=== PATIENT | male | born 1965 | race Caucasian/White ===

== ENCOUNTER 2018-12-22 06:57 | Day surgery (SDC) | payer OTHER ==
[~2018-12-22] VITALS: Ht 177.8 cm; Wt 91.6 kg
[~2018-12-22 06:57] MED LIST: NS 1,000 ML IV ONE; OMEP20CA3 PO
[2018-12-22] MEDS ORDERED: PROPOFOL 200 MG/20 ML VIAL As Ordered ONE ×2 (08:05→08:07)
[2018-12-22] MEDS ORDERED: LIDOCAINE 2% INJ 100 MG/5 ML SDV (FOR ANES.) As Ordered ONE (08:05)
--- NOTE | 2018-12-22 08:24 | ROOR ---
Patient Name: Skinny Tavarez Procedure Date: 12/22/2018 7:56 AM Date of : 1965 Age: 53 Room: [facility] Gender: Male Note Status: Finalized Procedure: Upper GI endoscopy Indications: Boone's low grade dysplasia Providers: Mitch BROWNING MD Referring MD: NATTY LUZ MD Requesting Provider: Medicines: Monitored Anesthesia Care Complications: No immediate complications. Procedure: Pre-Anesthesia Assessment: - The heart rate, respiratory rate, oxygen saturations, blood pressure, adequacy of pulmonary ventilation, and response to care were monitored throughout the procedure. The Endoscope was introduced through the mouth, and advanced to the duodenal bulb. The upper GI endoscopy was performed with difficulty due to presence of food. Successful completion of the procedure was aided by lavage. The patient tolerated the procedure well. Findings: The esophagus and gastroesophageal junction were examined with white light and narrow band imaging (NBI). There were esophageal mucosal changes consistent with short-segment Boone's esophagus. These changes involved the mucosa along an irregular Z-line (39 cm from the incisors). Circumferential salmon-colored mucosa was present from 38 to 39 cm. The maximum longitudinal extent of these esophageal mucosal changes was 1 cm in length. Mucosa was biopsied with a cold forceps for histology randomly from 38 to 39 cm from the incisors. One specimen bottle was sent to pathology. A medium amount of food (residue) was found in the entire examined stomach. Removal of food was accomplished. No gross lesions were noted in the entire examined stomach. Food (residue) was found in the duodenal bulb. Removal of food was accomplished. No gross lesions were noted in the duodenal bulb. Impression: - Esophageal mucosal changes consistent with short-segment Boone's esophagus. Biopsied. - A medium amount of food (residue) in the stomach and duodenum. Removal was partially successful. - Visualisation of stomach and duodenum is suboptimal/poor, but no gross lesions were seen. (- Retained food in stomach after 8 hour fast is consistent with Gastroparesis) Recommendation: - Await pathology results. - Use Prilosec (omeprazole) 20 mg PO BID for the rest of the patient's life. - Gastroparesis diet: - Eat smaller, more frequent meals throughout the day. - Low fat diet. - Liquid/soft foods are tolerated better than solid foods. - Low fiber/well cooked vegetables are tolerated better than high fiber/fibrous foods/raw vegetables. - Avoid medications that inhibit gastric/intestinal motility such as narcotic medications. Mitch Browning MD Mitch BROWNING MD 12/22/2018 8:24:11 AM This report has been signed electronically. Number of Addenda: 0 Note Initiated On: 12/22/2018 7:56 AM Estimated Blood Loss: Estimated blood loss: none.
[2018-12-22 08:40] VITALS: BP 121/76
== END 2018-12-22 08:51 | disposition home or self-care (01) ==
LOC: M OPP 06:57
PROVIDERS: ATTEND Internal Medicine Gastroenterology
DX: T18.2XXA Foreign body in stomach, initial encounter (principal); T18.3XXA Foreign body in small intestine, initial encounter; K22.70 Barrett's esophagus without dysplasia; Y92.89 Other specified places as the place of occurrence of the external cause; Y93.89 Activity, other specified; Y99.8 Other external cause status

== ENCOUNTER 2020-01-26 12:43 | Observation (INO) | payer OTHER ==
[~2020-01-26] VITALS: Ht 177.8 cm; Wt 94.3 kg
[~2020-01-26 12:43] MED LIST changes: -NS 1,000 ML IV ONE; +OMEP1CAP73 PO; -OMEP20CA3 PO
[2020-01-26] MEDS ORDERED: ONDANSETRON 4MG/2ML VIAL (J2405) As Ordered ONE (13:22)
--- NOTE | 2020-01-26 13:26 | REP ---
Head CT without contrast: History: Headache. Comparison study: No comparison study. CT findings: Bone window settings demonstrate an intact bony calvarium. There is no evidence of skull fracture or incidental bony calvarial lesion. The visualized paranasal sinuses appear clear. No intraorbital abnormality is seen. On soft tissue window setting images; the lateral, third, and fourth ventricles are normal in size and position. Rodriguez-white differentiation pattern is normal above and below the tentorium. There are is no evidence of intracranial hemorrhage. No mass, edema, infarction, or midline shift is seen. No extra-axial fluid collection is appreciated. Impression: Negative noncontrast head CT. Electronically Signed by Miquel Mejia MD 01/26/2020 01:18 P
[2020-01-26] MEDS ORDERED: ONDANSETRON 4MG/2ML VIAL (J2405) IV PRN (13:30)
[2020-01-26 13:53] LABS: BASO % 0.4 % (0.0-1.0); EOS % 0.3 % (0.0-3.0); HEMOGLOBIN 14.8 g/dl (13.5-17.5); LYMPH # 1.9 10^3/uL (1.5-5.0); LYMPH % 27.6 % (24.0-44.0); MEAN CORPUSCULAR HEMOGLOBIN 31.4 pg (27.0-33.0); MEAN CORPUSCULAR HGB CONC 36.1 g/dl (32.0-36.5); MONO # 0.6 10^3/uL (0.0-0.8); MONO % 8.6 % (0.0-5.0); NEUTROPHILS # 4.2 10^3/uL (1.5-8.5); NEUTROPHILS % 62.8 % (36.0-66.0); PLATELET COUNT, AUTOMATED 203 10^3/uL (150-450); RED BLOOD COUNT 4.71 10^6/uL (4.30-6.10); WHITE BLOOD COUNT 6.7 10^3/uL (4.0-10.0)
[2020-01-26 14:00] LABS: PARTIAL THROMBOPLASTIN TIME 24.6 SECONDS (25.0-38.4); PROTHROMBIN TIME 12.9 SECONDS (11.8-14.0)
[2020-01-26] MEDS ORDERED: ONDANSETRON 4MG/2ML VIAL (J2405) IV ONE (14:00)
[2020-01-26 14:23] LABS: ALBUMIN 4.5 GM/DL (3.2-5.2); ALT/SGPT 59 U/L (12-78); BILIRUBIN,DIRECT 0.1 MG/DL (0.0-0.2); BILIRUBIN,TOTAL 0.7 MG/DL (0.2-1.0); BLOOD UREA NITROGEN 16 MG/DL (7-18); CALCIUM LEVEL 9.4 MG/DL (8.5-10.1); CARBON DIOXIDE LEVEL 20 MEQ/L (21-32); CHLORIDE LEVEL 106 MEQ/L (98-107); CREATININE FOR GFR 1.16 MG/DL (0.70-1.30); FREE T4 1.37 NG/DL (0.76-1.46); GLOMERULAR FILTRATION RATE > 60.0 (>56); GLUCOSE, FASTING 124 MG/DL (70-100); POTASSIUM SERUM 3.3 MEQ/L (3.5-5.1); SODIUM LEVEL 139 MEQ/L (136-145); TOTAL PROTEIN 7.5 GM/DL (6.4-8.2)
[2020-01-26] MEDS ORDERED: PROMETHAZINE INJ 25 MG/ML VIAL (J2550) IV ONE (14:30)
[2020-01-26] MEDS: HYDROMORPHONE HCL 0.5 MG/ 0.5 ML SYRINGE (J1170 PER 1) IV PRN ×2 (14:38→16:12)
[2020-01-26] MEDS ORDERED: ISOVUE-370 76% 100ML VIAL (Q9967) As Ordered ONE (18:00)
--- NOTE | 2020-01-26 19:00 | REPVR ---
PROCEDURE INFORMATION: Exam: CT Angiography Head With Contrast Exam date and time: 01/26/2020 6:29 PM Age: 54 years old Clinical indication: Pain; Headache TECHNIQUE: Imaging protocol: Computed tomography angiography of the head with intravenous contrast. 3D rendering: MIP and/or 3D reconstructed images were created by the technologist. Radiation optimization: All CT scans at this facility use at least one of these dose optimization techniques: automated exposure control; mA and/or kV adjustment per patient size (includes targeted exams where dose is matched to clinical indication); or iterative reconstruction. Contrast material: ISOVUE 370; Contrast volume: 100 ml; Contrast route: IV; COMPARISON: CT Head without contrast 01/26/2020 1:00 PM FINDINGS: Right internal carotid artery: Unremarkable. Intracranial segment is patent with no significant stenosis. No aneurysm. Right anterior cerebral artery: Unremarkable. No occlusion or significant stenosis. No aneurysm. Right middle cerebral artery: Unremarkable. No occlusion or significant stenosis. No aneurysm. Right posterior cerebral artery: Unremarkable. No occlusion or significant stenosis. No aneurysm. Right vertebral artery: Unremarkable. No occlusion or significant stenosis. No aneurysm. Left internal carotid artery: Unremarkable. Intracranial segment is patent with no significant stenosis. No aneurysm. Left anterior cerebral artery: Unremarkable. No occlusion or significant stenosis. No aneurysm. Left middle cerebral artery: Unremarkable. No occlusion or significant stenosis. No aneurysm. Left posterior cerebral artery: Unremarkable. No occlusion or significant stenosis. No aneurysm. Left vertebral artery: Unremarkable. No occlusion or significant stenosis. No aneurysm. Basilar artery: Unremarkable. No occlusion or significant stenosis. No aneurysm. IMPRESSION: No acute abnormality. Electronically signed by: Denton Cain On 01/26/2020 19:00:29 PM
--- NOTE | 2020-01-26 20:06 | REPVR ---
PROCEDURE INFORMATION: Exam: CT Abdomen And Pelvis With Contrast Exam date and time: 01/26/2020 6:29 PM Age: 54 years old Clinical indication: Abdominal pain; Generalized TECHNIQUE: Imaging protocol: Computed tomography of the abdomen and pelvis with intravenous contrast. Radiation optimization: All CT scans at this facility use at least one of these dose optimization techniques: automated exposure control; mA and/or kV adjustment per patient size (includes targeted exams where dose is matched to clinical indication); or iterative reconstruction. Contrast material: ISOVUE 370; Contrast volume: 100 ml; Contrast route: IV; COMPARISON: No relevant prior studies available. FINDINGS: Liver: Normal. No mass. Gallbladder and bile ducts: Cholecystectomy clips. Pancreas: Normal. No ductal dilation. Spleen: Normal. No splenomegaly. Adrenals: Normal. No mass. Kidneys and ureters: Normal. No hydronephrosis. Stomach and bowel: Unremarkable. No obstruction. No mucosal thickening. Appendix: No evidence of appendicitis. Intraperitoneal space: Unremarkable. No free air. No significant fluid collection. Vasculature: Unremarkable. No abdominal aortic aneurysm. Lymph nodes: Unremarkable. No enlarged lymph nodes. Bladder: Unremarkable as visualized. Reproductive: Unremarkable as visualized. Bones/joints: Unremarkable. No acute fracture. Soft tissues: Unremarkable. IMPRESSION: No acute abdominal or pelvic abnormality. Electronically signed by: Denton Cain On 01/26/2020 20:05:56 PM
[2020-01-26] MEDS ORDERED: NS 1,000 ML IV ONE (20:30)
[2020-01-26] MEDS ORDERED: METOCLOPRAMIDE INJ 10MG/2ML VIAL (J2765) IV ONE (20:30)
[2020-01-26] MEDS ORDERED: KETOROLAC 30 MG/ML VIAL (J1885) IV ONE (20:30)
[2020-01-26] MEDS ORDERED: IBUPROFEN 600 MG TAB PO PRN (20:45)
[2020-01-26] MEDS ORDERED: ACETAMINOPHEN TAB 650MG DOSE (2X325MG) PO PRN (20:45)
[2020-01-26] MEDS ORDERED: MAALOX 30 ML SUSP *UDC PO PRN (20:45)
[2020-01-26] MEDS ORDERED: MOM 30ML SUSPENSION UDC PO PRN (20:45)
[2020-01-26] MEDS: DOCUSATE SODIUM 100 MG CAP PO SCH (21:00)
--- NOTE | 2020-01-26 22:27 | HPEPDOC ---
[facility] Medical History & Physical Date of Admission Jan 26, 2020 Date of Service: Jan 26, 2020 Attending Physician: KAYODE MO MD History and Physical TIME OF SERVICE: 9:39 PM CHIEF COMPLAINT: Abdominal pain and headache HISTORY OF PRESENT ILLNESS: This is a 54-year-old gentleman who presents with sudden onset generalized 10 out of 10 in severity, abdominal pain. He's never had this kind of pain before. He is also complaining of stabbing 10 out of 10, posterior head pain that "radiates all over". He reports having more than 20 episodes of nonbloody vomitus today and had 1 nonbloody bowel movement this morning. He denies having fevers, chills, having sick contacts, being under stress or traveling recently. Per ER notes, EMS reported that he had his annual work reviewed today, which did n't go well. REVIEW OF SYSTEMS: 12 point review of systems negative except as listed in HPI PAST MEDICAL/ SURGICAL HISTORY: GERD Gary fundoplication Appendectomy Cholecystectomy Obesity SOCIAL HISTORY: He doesn't smoke. He drinks alcohol socially He drinks 3-4 caffeinated beverages in the morning ALLERGIES: Please see below. HOME MEDICATIONS: Please see below. Vital Signs Date Time Temp Pulse Resp B/P (MAP) Pulse Ox O2 Delivery O2 Flow Rate FiO2 01/26/20 12:52 96.8 140/86 (104) 01/26/20 12:58 95 100 01/26/20 14:38 22 01/26/20 14:58 Room Air PHYSICAL EXAMINATION: GEN: well-nourished / well developed/ NAD INTEGUMENT: not flushed HEENT: NCAT / mucus membranes moist and pink CVS: RRR/NMRG LUNGS: clear to auscultation bilaterally on room air ABDOMEN: Contour (flat) / there are no masses or lesions /soft & not tender with palpation MSK/EXTREMITIES: range of motion intact in all 4 extremities PSYCH: alert and oriented to person place and time/ able to understand and follow all commands LABORATORY DATA: Prothrombin Time 12.9, Prothromb Time International Ratio 1.00, Activated Partial Thromboplast Time 24.6L, Anion Gap 13, Glomerular Filtration Rate > 60.0, Calcium Level 9.4, Total Bilirubin 0.7, Direct Bilirubin 0.1, Aspartate Amino Transf (AST/SGOT) 26, Alanine Aminotransferase (ALT/SGPT) 59, Alkaline Phosphatase 80, Total Protein 7.5, Albumin 4.5, Albumin/Globulin Ratio 1.50, Thyroid Stimulating Hormone (TSH) 1.210, Free Thyroxine 1.37 IMAGING: CT head " Impression: Negative noncontrast head CT." CTA head : IMPRESSION: No acute abnormality." CT abdomen/pelvis " IMPRESSION: CT acute abdominal or pelvic abnormality." MICROBIOLOGY: Please see below. ASSESSMENT: Mr. Tavarez is a 54-year-old with a history of GERD who is admitted for management of head and abdominal pain of unclear cause. PLAN: 1. Headache. Possibly due to stress - Plan: Ibuprofen and Tylenol 2. Nausea, vomiting and abdominal pain - Plan: Pain meds / Zofran / IV fluids 3. Hypokalemia secondary to vomiting - replete potassium. Follow-up magnesium/Zofran DVT PROPHYLAXIS: SCDs DISPOSITION: Likely home in the morning Home Medications Scheduled Omeprazole (Omeprazole) 20 Mg Cap, 20 MG PO BID Allergies Coded Allergies: No Known Allergies (Unverified , 01/26/20) A-FIB/CHADSVASC A-FIB History Current/History of A-Fib/PAF?: No Current PO Anticoag Therapy: No KAYODE MO MD Jan 26, 2020 22:27
[2020-01-26 22:30] VITALS: BP 108/67
[2020-01-26] MEDS: OMEPRAZOLE 20 MG CAP PO SCH (23:00)
[2020-01-26] MEDS ORDERED: POTASSIUM CHLORIDE 10 MEQ SR TABLET PO ONE (23:00)
[2020-01-27] MEDS ORDERED: ONDANSETRON 4 MG TAB (S0181) PO PRN (03:15)
[2020-01-27] MEDS ORDERED: NS 1,000 ML IV SCH (03:15)
[2020-01-27 06:00] VITALS: BP 119/60
[2020-01-27 07:27] LABS: HEMATOCRIT 38.2 % (42.0-52.0); HEMOGLOBIN 13.3 g/dl (13.5-17.5); MEAN CORPUSCULAR HEMOGLOBIN 31.8 pg (27.0-33.0); MEAN CORPUSCULAR HGB CONC 34.8 g/dl (32.0-36.5); MEAN CORPUSCULAR VOLUME 91.4 fl (80.0-96.0); PLATELET COUNT, AUTOMATED 166 10^3/uL (150-450); RED BLOOD COUNT 4.18 10^6/uL (4.30-6.10); WHITE BLOOD COUNT 9.1 10^3/uL (4.0-10.0)
[2020-01-27 08:01] LABS: BLOOD UREA NITROGEN 13 MG/DL (7-18); CALCIUM LEVEL 8.7 MG/DL (8.5-10.1); CARBON DIOXIDE LEVEL 27 MEQ/L (21-32); CHLORIDE LEVEL 110 MEQ/L (98-107); CREATININE FOR GFR 0.99 MG/DL (0.70-1.30); GLOMERULAR FILTRATION RATE > 60.0 (>56); GLUCOSE, FASTING 88 MG/DL (70-100); POTASSIUM SERUM 3.9 MEQ/L (3.5-5.1); SODIUM LEVEL 143 MEQ/L (136-145)
[2020-01-27] MEDS: OMEPRAZOLE 20 MG CAP PO SCH (08:16)
[2020-01-27] MEDS: DOCUSATE SODIUM 100 MG CAP PO SCH (09:00)
--- NOTE | 2020-01-27 11:28 | DS.PDOC ---
Discharge Summary General Date of Admission Jan 26, 2020 at 12:44 Date of Discharge 01/27/2020 Discharge Summary PROCEDURES PERFORMED DURING STAY: [None]. ADMITTING DIAGNOSES / DISCHARGE DIAGNOSES: Headache Nausea / Vomiting Abdominal pain Hypokalemia DVT prophylaxis COMPLICATIONS/CHIEF COMPLAINT: Headache. HISTORY OF PRESENT ILLNESS / HOSPITAL COURSE: Patient is a 54-year-old male with a past medical history of GERD who presented to the ER after expressing a sudden onset of generalized tender to 10 abdominal pain that progressed to neck pain while patient was at work. Upon arrival to emergency room, patient had lab work and imaging completed. Laboratory did not reveal any evidence of leukocytosis. There is a slightly low potassium level that was supplemented. Kidney function was within normal range. Liver function was appropriate and thyroid function was normal. Patient had a CT of his head, abdomen and pelvis, all of which was negative. Upon evaluation, patient this morning he had reported complete resolution of all his symptoms. Again, I discussed with him the possibility of anxiety and he has denied any stressors in his life. Patient has been instructed to follow-up with his primary care provider within the next 7 days and to remain compliant with treatment plan. A medications. He has been advised to return to the emergency room if he experiences any problems. DISCHARGE MEDICATIONS: Please see below. ALLERGIES: Please see below. PHYSICAL EXAMINATION ON DISCHARGE: Vitals (See below) General: Lying in bed, no acute distress, comfortable, AAOx3 HEENT: NC, AT CVS: +S1S2 Lungs: Fair air entry b/l, -w/r/r Abdomen: Soft, ND, NT Extremities: - Edema, - Calf tenderness LABORATORY DATA: Please see below. IMAGING: CT head 01/26: Negative noncontrast head CT. CTA head 01/26: No acute abnormality. CT abdomen / pelvis 01/26: No acute abdominal or pelvic abnormality. PROGNOSIS: Fair ACTIVITY: [As tolerated]. DISCHARGE PLAN: Advise to follow up with [facility] within 7 days Remain compliant with treatment plan and medications Return to the ER if you experience any problems DISPOSITION: Home, Self-Care. DISCHARGE CONDITION: [Stable]. TIME SPENT ON DISCHARGE: 25 minutes Vital Signs/I&Os Vital Signs Date Time Temp Pulse Resp B/P (MAP) Pulse Ox O2 Delivery O2 Flow Rate FiO2 01/27/20 06:00 98.3 68 18 119/60 (79) 96 Room Air I&O- Last 24 Hours up to 6 AM 01/27/20 06:00 Intake Total 1700 ml Output Total 0 ml Balance 1700 ml Laboratory Data Labs 24H Laboratory Tests 2 01/26/20 13:32: Immature Granulocyte % (Auto) 0.3, Neutrophils (%) (Auto) 62.8, Lymphocytes (%) (Auto) 27.6, Monocytes (%) (Auto) 8.6H, Eosinophils (%) (Auto) 0.3, Basophils (%) (Auto) 0.4, Neutrophils # (Auto) 4.2, Lymphocytes # (Auto) 1.9, Monocytes # (Auto) 0.6, Eosinophils # (Auto) 0.0, Basophils # (Auto) 0.0, Nucleated Red Blood Cells % (auto) 0.0, Prothrombin Time 12.9, Prothromb Time International Ratio 1.00, Activated Partial Thromboplast Time 24.6L, Anion Gap 13, Glomerular Filtration Rate > 60.0, Calcium Level 9.4, Total Bilirubin 0.7, Direct Bilirubin 0.1, Aspartate Amino Transf (AST/SGOT) 26, Alanine Aminotransferase (ALT/SGPT) 59, Alkaline Phosphatase 80, Total Protein 7.5, Albumin 4.5, Albumin/Globulin Ratio 1.50, Thyroid Stimulating Hormone (TSH) 1.210, Free Thyroxine 1.37 01/27/20 07:15: Nucleated Red Blood Cells % (auto) 0.0, Anion Gap 6L, Glomerular Filtration Rate > 60.0, Calcium Level 8.7 CBC/BMP Laboratory Tests 01/26/20 13:32 01/27/20 07:15 Discharge Medications Scheduled Omeprazole (Omeprazole) 20 Mg Cap, 20 MG PO BID, (Reported) Allergies Coded Allergies: No Known Allergies (Unverified , 01/26/20) FABIANO MC MD Jan 27, 2020 11:28
== END 2020-01-27 10:30 | disposition home or self-care (01) ==
LOC: EDBD 12:43 → M ED 12:43 → M ED INP 12:44 → ENRESERV 21:28 → M MS5PR 22:10
PROVIDERS: ADMIT Internal Medicine; ATTEND Internal Medicine
DX: R51 Headache (principal); R11.2 Nausea with vomiting, unspecified; R10.9 Unspecified abdominal pain; E87.6 Hypokalemia; K21.9 Gastro-esophageal reflux disease without esophagitis; E66.9 Obesity, unspecified; Z79.899 Other long term (current) drug therapy
CPT/HCPCS: 36415; 70450; 70496; 74177; 80048; 80076; 84439; 84443; 85025; 85027; 85610; 85730; 93041; 94760; 96361; 96374; 96375; 96376; 99285; J1170; J1885; J2405; J2765; Q9967

== ENCOUNTER → 2020-04-21 | Outpatient (CLI) | payer OTHER ==
[~2020-04-21] MED LIST changes: +LEXA1TAB PO
== END ==
LOC: M LABSMTC 11:41
PROVIDERS: ATTEND Anesthesiology
DX: Z01.818 Encounter for other preprocedural examination (principal); Z11.59 Encounter for screening for other viral diseases
CPT/HCPCS: C9803; U0003

== ENCOUNTER 2020-04-24 11:57 | Day surgery (SDC) | payer OTHER ==
[~2020-04-24] VITALS: Ht 177.8 cm; Wt 95.3 kg
[~2020-04-24 11:57] MED LIST changes: +NS 1,000 ML IV ONE
[2020-04-24] MEDS ORDERED: LIDOCAINE 2% 100MG/5ML SDV (FOR ANES.) As Ordered ONE (14:26)
[2020-04-24] MEDS ORDERED: propofoL 200 MG/20 ML VIAL As Ordered ONE (14:26)
[2020-04-24] MEDS ORDERED: fentaNYL 100 MCG/2 ML INJECTION (J3010) As Ordered ONE (14:27)
--- NOTE | 2020-04-24 14:37 | ROOR ---
Patient Name: Skinny Tavarez Procedure Date: 04/24/2020 2:15 PM Date of : 1965 Age: 54 Room: [facility] Gender: Male Note Status: Finalized Procedure: Upper GI endoscopy Indications: Surveillance for malignancy due to personal history of Boone's esophagus, Boone's low grade dysplasia Providers: Mitch BROWNING MD Referring MD: NATTY LUZ MD Requesting Provider: Medicines: Monitored Anesthesia Care Complications: No immediate complications. Procedure: Pre-Anesthesia Assessment: - The heart rate, respiratory rate, oxygen saturations, blood pressure, adequacy of pulmonary ventilation, and response to care were monitored throughout the procedure. The Endoscope was introduced through the mouth, and advanced to the second part of duodenum. The upper GI endoscopy was accomplished without difficulty. The patient tolerated the procedure well. Findings: There were esophageal mucosal changes suspicious for short-segment Boone's esophagus present in the lower third of the esophagus. The maximum longitudinal extent of these mucosal changes was 2 cm in length. Mucosa was biopsied with a cold forceps for histology from 38 to 39 cm from the incisors. A total of 2 specimen bottles were sent to pathology. Evidence of a prior Gary fundoplication was found in the cardia. The exam of the stomach was otherwise normal. The examined duodenum was normal. The exam was otherwise without abnormality. Impression: - Esophageal mucosal changes suspicious for short-segment Boone's esophagus. Biopsied. - A Gary fundoplication was found. - The examination was otherwise normal. Recommendation: - Continue present medications. - Observe patient's clinical course. - Telephone endoscopist for pathology results in 2 weeks. Mitch Browning MD Mitch BROWNING MD 04/24/2020 2:37:38 PM Electronically signed by Mitch BROWNING MD Number of Addenda: 0 Note Initiated On: 04/24/2020 2:15 PM Estimated Blood Loss: Estimated blood loss: none.
[2020-04-24 15:06] VITALS: BP 133/88
== END 2020-04-24 15:05 | disposition home or self-care (01) ==
LOC: M OPP 11:57
PROVIDERS: ATTEND Internal Medicine Gastroenterology
DX: K22.710 Barrett's esophagus with low grade dysplasia (principal); Z98.890 Other specified postprocedural states; Z79.899 Other long term (current) drug therapy
CPT/HCPCS: 43239; 88305; J3010